=== PATIENT | female | born 1955 | race Caucasian/White ===

== ENCOUNTER 2017-12-30 12:53 | Outpatient (CLI) | payer OTHER ==
[~2017-12-30] VITALS: Ht 165.1 cm; Wt 95.3 kg
[~2017-12-30 12:53] MED LIST: AMOX1TAB5; PLAVIX75 MG
== END 2017-12-30 13:15 | disposition home or self-care (01) ==
LOC: OFIC 805 12:53
DX: H92.03 Otalgia, bilateral (principal); H61.23 Impacted cerumen, bilateral